=== PATIENT | female | born 1995 | race Caucasian/White ===

== ENCOUNTER 2018-07-28 20:26 | Emergency (ER) | payer BC ==
[2018-07-28] MEDS ORDERED: NS 0.9% 1000 ML** 1,000 ML IV ONE (20:53)
--- NOTE | 2018-07-28 20:55 | UC ---
Cardiac HPI - HPI Summary HPI Summary: 22-year-old female presents with complaints of sudden onset of chest heaviness, difficulty breathing, and sensation of her "heart racing and beating out of her chest" while sitting on the couch watching a movie with her friends about 1 hour prior to arrival. Patient states that she has had some upper respiratory symptoms for the last 3-4 days including nasal congestion, sore throat, and nonproductive cough. Has taken a dose of Benadryl yesterday and another one today otherwise states has not been taking any other medications for his symptoms. She also states that she had been out drinking with her friends last night and had several mixed rum drinks but stopped drinking around 11:30 last night. Denies any illicit drugs. She did have some nausea and with 3-4 episodes of vomiting this morning. Last episode was around 12:30 this afternoon. States she has been able to drink and hold down fluids since that time. Denies fever, chills, abdominal pain, diarrhea, blood in stool, melena, calf pain or swelling, or recent confinement. - History of Current Complaint Stated Complaint: HEAVY CHEST, TROUBLE BREATHING, COUGH Time Seen by Provider: 07/28/18 20:31 Hx Obtained From: Patient - Allergy/Home Medications Allergies/Adverse Reactions: Allergies Allergy/AdvReac Type Severity Reaction Status Date / Time No Known Allergies Allergy Verified 07/28/18 20:51 Home Medications: Home Medications Control Pill 1 tab DAILY 07/28/18 [History Confirmed 07/28/18] PMH/Surg Hx/FS Hx/Imm Hx Previously Healthy: Yes - Denies significant PMH - Surgical History Surgical History: None - Family History Known Family History: Positive: Non-Contributory Negative: Blood Disorder - Denies family history of blood clots - Social History Occupation: Student Lives: Dormitory/Roommates Alcohol Use: Occasionally Substance Use Type: None Smoking Status (MU): Never Smoked Tobacco Review of Systems All Other Systems Reviewed And Are Negative: Yes Constitutional: Negative: Fever, Chills Skin: Negative: Rash ENT: Positive: Sore Throat, Nasal Discharge, Sinus Congestion. Negative: Ear Ache, Sinus Pain/Tenderness Respiratory: Positive: Shortness Of Breath, Cough Cardiovascular: Positive: Palpitations, Chest Pain - Heaviness Gastrointestinal: Negative: Abdominal Pain, Vomiting, Diarrhea, Nausea Genitourinary: Positive: Negative Musculoskeletal: Positive: Negative Neurological: Positive: Negative Is Patient Immunocompromised?: No Physical Exam - Summary Physical Exam Summary: GENERAL APPEARANCE: Well developed, well nourished, alert and cooperative, and appears to be in no acute distress. EYES: Conjunctiva clear. No drainage. Vision is grossly intact. EARS: External auditory canals and tympanic membranes clear, hearing grossly intact. NOSE: Mild nasl congestion. No nasal discharge. THROAT: Mild pharyngeal erythea with cobblestoning. No tonsilar inflammation, swelling, exudate, or lesions. Uvula midline. Oral cavity normal. Teeth and gingiva in good general condition. NECK: Neck supple, non-tender without lymphadenopathy. CARDIAC: Normal S1 and S2. No S3, S4 or murmurs. Rhythm is regular. Tachycardic. There is no peripheral edema, cyanosis or pallor. Extremities are warm and well perfused. Capillary refill is less than 2 seconds. Peripheral pulses intact. LUNGS: Clear to auscultation without rales, rhonchi, wheezing or diminished breath sounds. ABDOMEN: Positive bowel sounds. Soft, nondistended, nontender. No guarding or rebound. No masses or hepatosplenomegally. MUSKULOSKELETAL: ROM intact to all extremities. No joint erythema or tenderness. Normal muscular development. Normal gait. SKIN: Skin normal color, texture and turgor with no lesions or eruptions. Triage Information Reviewed: Yes Vital Signs Reviewed: Yes Diagnostics - EKG Cardiac Rate: Tachycardia Cardiac Rhythm: Sinus: Normal Ectopy: None Summary of EKG Findings: Sinus tachycardia rate of 147 without ectopy, GUILLERMO, or T -wave abnormalities - Assessment/Plan Course Of Treatment: 22-year-old female presents with complaints of sudden onset of chest heaviness, difficulty breathing, and sensation of her "heart racing and beating out of her chest" while sitting on the couch watching a movie with her friends about 1 hour prior to arrival. Patient states that she has had some upper respiratory symptoms for the last 3-4 days including nasal congestion, sore throat, and nonproductive cough. Has taken a dose of Benadryl yesterday and another one today otherwise states has not been taking any other medications for his symptoms. She also states that she had been out drinking with her friends last night and had several mixed rum drinks but stopped drinking around 11:30 last night. Denies any illicit drugs. She did have some nausea and with 3-4 episodes of vomiting this morning. Last episode was around 12:30 this afternoon. States she has been able to drink and hold down fluids since that time. Denies fever, chills, abdominal pain, diarrhea, blood in stool , melena, calf pain or swelling, or recent confinement. Afebrile. Mildly elevated blood pressure, tachycardic in the 150s at triage, otherwise vital signs stable. Exam revealed an alert young adult female in no acute distress. She was tachycardic, S1 and S2 with no murmurs or extra sounds, bilateral clear breath sounds, nontender abdomen, and otherwise unremarkable exam. 12-lead EKG shows sinus tachycardia without ectopy, ST elevation, or T-wave changes. A 20- gauge IV was established and patient was started on normal saline 1 L bolus. With her complaints of chest tightness, shortness of breath, and tachycardia must consider the possibility of a pulmonary embolism although he has a broad differential. I am recommending that she be transferred to [facility] emergency room via ambulance for further evaluation. Patient is agreeable to this and was transferred in guarded condition via [facility] ambulance service. - Differential Diagnoses - Chest Pain Differential Diagnosis/HQI/PQRI: Lower Respiratory Infection, Pulmonary Embolism , Other: - arrythmia - Differential Diagnoses - Palpitations Differential Diagnosis/HQI/PQRI: Hypokalemia, Myocarditis, Pericarditis, Pulmonary Embolism - Clinical Impression Provider Diagnosis: Tachycardia, Chest heaviness - Physician Notifications Discussed Patient Care With: Justice Boogie MD Time Discussed With Above Provider: 21:00 Instructed by Provider To: Will See In ED Discharge - Sign-Out/Discharge Documenting (check all that apply): Patient Departure All imaging exams completed and their final reports reviewed: No Studies - Discharge Plan Condition: Guarded Disposition: TRANS HIGHER LVL OF CARE FAC Referrals: No Primary Care Phys,NOPCP [Primary Care Provider] - - Billing Disposition and Condition Condition: GUARDED Disposition: Trans Higher Lvl of Care Fac - Attestation Statements Provider Attestation: I was available for consultation. Berta did review the case with me and I agree w/ a/p. I reviewed EKG as noted. sinus tachy. transfer to ER via ambulance. NS IVF.
[2018-07-28 21:24] VITALS: BP 137/68
== END 2018-07-28 21:24 | disposition short-term general hospital (02) ==
LOC: UCCORT 20:26
DX: R07.89 Other chest pain (principal); R00.0 Tachycardia, unspecified; R05 Cough; R09.81 Nasal congestion; J02.9 Acute pharyngitis, unspecified; R11.2 Nausea with vomiting, unspecified
CPT/HCPCS: 93005; 99203; G0463